=== PATIENT | male | born 1955 | race Caucasian/White ===

== ENCOUNTER 2019-02-24 18:49 | Emergency (ER) | payer OTHER ==
[~2019-02-24] VITALS: Ht 190.5 cm; Wt 86.2 kg
[2019-02-24 18:57] VITALS: Ht 190.5 cm; Wt 86.2 kg
[2019-02-24 20:57] VITALS: BP 101/71
== END 2019-02-24 20:57 | disposition short-term general hospital (02) ==
LOC: ED 18:49
DX: S82.451B Displaced comminuted fracture of shaft of right fibula, initial encounter for open fracture type I or II (principal); I10 Essential (primary) hypertension; W34.09XA Accidental discharge from other specified firearms, initial encounter; Y92.89 Other specified places as the place of occurrence of the external cause; Y93.89 Activity, other specified; Y99.8 Other external cause status
CPT/HCPCS: 90715; J0690; Q0092